=== PATIENT | female | born 1965 | race American Indian/Alaskan Native ===

== ENCOUNTER 2020-06-03 04:05 | Emergency (ER) | payer BC ==
[2020-06-03 04:18] VITALS: BP 131/76
--- NOTE | 2020-06-03 05:01 | XRay Report ---
CHEST 2 VIEWS INDICATION: chest pain and cough. COMPARISON: 10/11/2018 FINDINGS: SUPPORT DEVICES: None. HEART: Within normal limits. LUNGS/PLEURA: No acute air space or interstitial disease. No pneumothorax. ADDITIONAL FINDINGS: None. IMPRESSION: 1. No acute findings. Signer Name: Luca Torrez MD Signed: 06/03/2020 4:57 AM Workstation Name: [id number]
--- NOTE | 2020-06-03 06:24 | Event Note ---
ED Screening Note Date of service: 06/03/20 Time: 06:23 ED Screening Note: Patient complains of intermittent substernal chest pain x3 days Also complains of cough sore throat Denies past medical history This initial assessment/diagnostic orders/clinical plan/treatment(s) is/are subject to change based on patients health status, clinical progression and re- assessment by fellow clinical providers in the ED. Further treatment and workup at subsequent clinical providers discretion. Patient/guardian urged not to elope from the ED as their condition may be serious if not clinically assessed and managed. Initial orders include: Labs Chest x-ray EKG
[2020-06-03] MEDS ORDERED: LIDOCAINE VISCOUS 2% 15 ML ORAL LIQD PO ONE (07:16)
[2020-06-03] MEDS ORDERED: BENZONATATE 100 MG CAP PO ONE (07:16)
[2020-06-03 07:32] LABS: Hematocrit 43.1 % (30.3-42.9); Hemoglobin 14.6 gm/dl (10.1-14.3); Mean Corpuscular HGB Conc 34 % (30-34); Mean Corpuscular Volume 92 fl (79-97); Platelet Count 260 K/mm3 (140-440); Red Cell Distribution Width 13.4 % (13.2-15.2)
[2020-06-03 07:49] LABS: INR 1.16 (0.87-1.13); Partial Thromboplastin Time 29.2 Sec. (24.2-36.6)
[2020-06-03 07:54] LABS: Alanine Aminotransferase 10 units/L (7-56); Albumin 3.7 g/dL (3.9-5); BUN/Creatinine Ratio 23; Blood Urea Nitrogen 21 mg/dL (7-17); Calcium 9.6 mg/dL (8.4-10.2); Hemolysis Index 20
--- NOTE | 2020-06-03 08:11 | Emergency Department Report ---
- General Chief Complaint: Chest Pain Stated Complaint: SORE THROAT/CHEST PAIN Time Seen by Provider: 06/03/20 06:22 Source: patient Mode of arrival: Ambulatory Limitations: No Limitations - History of Present Illness Initial Comments: This is a 55-year-old female nontoxic, well nourished in appearance, no acute signs of distress presents to the ED with c/o of productive cough, sore throat, rhinorrhea, nasal congestion x1 week. Patient also stated has chest pains during cough but resolved at rest. Patient describes productive cough as yellow mucus production. Patient denies any sick contacts. Patient denies any recent travels, long car, recent hospital stays. Patient denies any calf pain or calf tenderness. Patient denies any chest pain, short of breath, fever, chills, nausea, vomiting, hemoptysis, numbness, tingling, headache or stiff neck. Stated had 2 negative covid testing. Allergies to tramadol. MD Complaint: cough, sore throat, rhinorrhea, nasal congestion, other (chest pain) -: days(s) Severity: mild Severity scale (0 -10): 3 Quality: aching Consistency: intermittent Improves With: nothing Worsens With: nothing Associated Symptoms: rhinorrhea, nasal congestion, sore throat, cough, chest pain. denies: fever, chills, myalgias, diaphoresis, headache, stiff neck, shortness of breath, abdominal pain, nausea, vomiting, diarrhea, dysuria, rash, confusion, right sweats, weight loss, epistaxis, hoarseness, ear pain - Related Data Previous Rx's Medication Instructions Recorded Last Taken Type Azithromycin [Zithromax Z-JINNY] 250 mg PO DAILY #6 tablet 06/03/20 Unknown Rx Benzonatate [Tessalon Perles] 100 mg PO Q8HR PRN #12 capsule 06/03/20 Unknown Rx Allergies Allergy/AdvReac Type Severity Reaction Status Date / Time tramadol Allergy Itching Verified 06/03/20 04:23 ED Review of Systems ROS: Stated complaint: SORE THROAT/CHEST PAIN Other details as noted in HPI Constitutional: denies: chills, fever Eyes: denies: eye pain, eye discharge, vision change ENT: throat pain, congestion. denies: ear pain Respiratory: cough. denies: shortness of breath, wheezing Cardiovascular: chest pain. denies: palpitations Endocrine: no symptoms reported Gastrointestinal: denies: abdominal pain, nausea, diarrhea Genitourinary: denies: urgency, dysuria, discharge Musculoskeletal: denies: back pain, joint swelling, arthralgia Skin: denies: rash, lesions Neurological: denies: headache, weakness, paresthesias Psychiatric: denies: anxiety, depression Hematological/Lymphatic: denies: easy bleeding, easy bruising ED Past Medical Hx - Past Medical History Previous Medical History?: No - Surgical History Past Surgical History?: Yes Hx Cholecystectomy: Yes Additional Surgical History: - Social History Smoking Status: Never Smoker Substance Use Type: None - Medications Home Medications: Home Medications Medication Instructions Recorded Confirmed Last Taken Type Azithromycin [Zithromax Z-JINNY] 250 mg PO DAILY #6 tablet 06/03/20 Unknown Rx Benzonatate [Tessalon Perles] 100 mg PO Q8HR PRN #12 capsule 06/03/20 Unknown Rx ED Physical Exam - General Limitations: No Limitations General appearance: alert, in no apparent distress - Head Head exam: Present: atraumatic, normocephalic - Eye Eye exam: Present: normal appearance - Expanded ENT Exam Expanded Ear exam: Present: normal external inspection Mouth exam: Present: normal external inspection, tongue normal. Absent: drooling, trismus, muffled voice Teeth exam: Present: normal inspection Throat exam: Positive: tonsillar erythema, other (Uvula midline. No tonsillar abscess or swelling.). Negative: tonsillomegaly, tonsillar exudate, R peritonsillar mass, L peritonsillar mass - Neck Neck exam: Present: normal inspection, full ROM. Absent: tenderness, meningismus, lymphadenopathy - Respiratory Respiratory exam: Present: normal lung sounds bilaterally, chest wall tenderness. Absent: respiratory distress, wheezes, rales, rhonchi, stridor, accessory muscle use, decreased breath sounds, prolonged expiratory - Cardiovascular Cardiovascular Exam: Present: regular rate, normal rhythm, normal heart sounds. Absent: bradycardia, tachycardia, irregular rhythm, systolic murmur, diastolic murmur, rubs, gallop - Extremities Exam Extremities exam: Present: normal inspection, full ROM, normal capillary refill. Absent: tenderness - Back Exam Back exam: Present: normal inspection, full ROM. Absent: tenderness, CVA tenderness (R), CVA tenderness (L), muscle spasm, paraspinal tenderness, vertebral tenderness, rash noted - Neurological Exam Neurological exam: Present: alert, oriented X3, normal gait - Psychiatric Psychiatric exam: Present: normal affect, normal mood - Skin Skin exam: Present: warm, dry, intact, normal color. Absent: rash ED Course Vital Signs 06/03/20 04:14 Temperature 97.5 F L Pulse Rate 75 Respiratory 18 Rate Blood Pressure 131/76 O2 Sat by Pulse 100 Oximetry - Reevaluation(s) Reevaluation #1: 06/03/20 08:08 Patient is speaking in full sentences with no signs of distress noted. ED Medical Decision Making - Lab Data Result diagrams: 06/03/20 06:34 06/03/20 06:34 Lab Results 06/03/20 06/03/20 06/03/20 Range/Units 06:34 06:34 07:08 WBC 7.3 (4.5-11.0) K/mm3 RBC 4.70 (3.65-5.03) M/mm3 Hgb 14.6 H (10.1-14.3) gm/dl Hct 43.1 H (30.3-42.9) % MCV 92 (79-97) fl MCH 31 (28-32) pg MCHC 34 (30-34) % RDW 13.4 (13.2-15.2) % Plt Count 260 (140-440) K/mm3 Eos % (Auto) Dietician PT 14.6 (12.2-14.9) Sec. INR 1.16 H (0.87-1.13) APTT 29.2 (24.2-36.6) Sec. Sodium 136 L (137-145) mmol/L Potassium 4.0 (3.6-5.0) mmol/L Chloride 102.8 (98-107) mmol/L Carbon Dioxide 26 (22-30) mmol/L Anion Gap 11 mmol/L BUN 21 H (7-17) mg/dL Creatinine 0.9 (0.6-1.2) mg/dL Estimated GFR > 60 ml/min BUN/Creatinine Ratio 23 % Glucose 102 H (65-100) mg/dL Calcium 9.6 (8.4-10.2) mg/dL Total Bilirubin 0.40 (0.1-1.2) mg/dL AST 14 (5-40) units/L ALT 10 (7-56) units/L Alkaline Phosphatase 53 (35-129) units/L Troponin T < 0.010 (0.00-0.029) ng/mL Total Protein 7.6 (6.3-8.2) g/dL Albumin 3.7 L (3.9-5) g/dL Albumin/Globulin Ratio 0.9 % - EKG Data 06/03/20 08:11 Normal sinus rhythm at [address] or T wave abnormalities. Reviewed and signed by MD - Radiology Data Referring Physician: ENE KNOTT Patient Name: NATE MARRUFO Date of : 1965 Sex: Female Report Date: 2020-06-03 Report Status: [place] [address] XRay Report Signed Patient: NATE MARRUFO MR#: [id number] : 1965 Acct:[id number] Age/Sex: 55 / F ADM Date: 06/03/20 Loc: ED Attending Dr: Ordering Physician: ENE KNOTT MD Date of Service: 06/03/20 Procedure(s): XR chest routine 2V Accession Number(s): [id number] cc: ENE KNOTT MD Fluoro Time In Minutes: CHEST 2 VIEWS INDICATION: chest pain and cough. COMPARISON: 10/11/2018 FINDINGS: SUPPORT DEVICES: None. HEART: Within normal limits. LUNGS/PLEURA: No acute air space or interstitial disease. No pneumothorax. ADDITIONAL FINDINGS: None. IMPRESSION: 1. No acute findings. Signer Name: Luca Torrez MD Signed: 06/03/2020 4:57 AM Workstation Name: [id number] Transcribed By: ANASTASIA Dictated By: Luca Torrez MD Electronically Authenticated By: Luca Torrez MD Signed Date/Time: 06/03/20456 DD/ 5 TD/TT: - Medical Decision Making This is a 55-year-old female that presents with viral bronchitis, pharyngitis and costochondritis. Patient is stable and was examined by me. POLI and HEART score 0 pints. PERC score for DVT/SVT/PE 0 points. Labs within normal limits. Negative troponin . Chest x-ray has been obtained and dictated by radiologist with normal exam. Patient is notified of x-ray results with no questions noted. Patient has recent negative 2 COVID-19 swabs but patient was instructed and educated on signs and symptoms and to self quarantine and seek medical attention as soon as possible if symptoms does occur. Will treat with Zpak. Patient was instructed to increase hydration, rest and take Tylenol for fever episodes. Patient received tesslone perrls in the ED. Vitals stable. Patient is nonfebrile and normal heart rate. Patient was instructed to Follow-up with a primary care/customer experience manager doctor in 2 days or if symptoms worsen and continue return to emergency room as soon as possible. At time of discharge, the patient does not seem toxic or ill in appearance. No acute signs of distress noted. Patient agrees to discharge treatment plan of care. No further questions noted by the patient. Critical care attestation.: If time is entered above; I have spent that time in minutes in the direct care of this critically ill patient, excluding procedure time. ED Disposition Clinical Impression: Viral bronchitis, Costochondritis Pharyngitis Qualifiers: Pharyngitis/tonsillitis etiology: unspecified etiology Qualified Code(s): J02.9 - Acute pharyngitis, unspecified Disposition: DC- TO HOME OR SELFCARE Is pt being admited?: No Does the pt Need Aspirin: No Condition: Stable Instructions: Chronic Bronchitis (ED), Costochondritis, [id number], Viral Respiratory Infection, [id number], Sore Throat, [id number] Additional Instructions: Follow-up with a primary care/customer experience manager doctor in 2 days or if symptoms worsen and continue return to emergency room as soon as possible. Prescriptions: Benzonatate [Tessalon Perles] 100 mg PO Q8HR PRN #12 capsule PRN Reason: Cough Azithromycin [Zithromax Z-JINNY] 250 mg PO DAILY #6 tablet Referrals: PRIMARY CAREMD [Primary Care Provider] - 3-5 Days NATASHA ALICEA MD [Staff Physician] - 06/05/20 BALTAZAR SHIPMAN MD [Staff Physician] - 06/05/20 Forms: Work/School Release Form(ED)
[2020-06-03 11:28] LABS: Total Cells Counted 100
[2020-06-03 11:29] LABS: Basophils % (Manual) 0 % (0.0-1.8); Platelet Estimate Consistent w Auto; RBC Morphology Normal
== END 2020-06-03 08:20 | disposition home or self-care (01) ==
LOC: ED 04:05
DX: M94.0 Chondrocostal junction syndrome [Tietze] (principal); J20.8 Acute bronchitis due to other specified organisms; J02.9 Acute pharyngitis, unspecified; Z79.899 Other long term (current) drug therapy; Z88.8 Allergy status to other drugs, medicaments and biological substances; Z90.49 Acquired absence of other specified parts of digestive tract; Z98.890 Other specified postprocedural states
CPT/HCPCS: 36415; 71046; 80053; 84484; 85007; 85025; 85610; 85730; 93005

== ENCOUNTER 2020-12-04 10:26 | Outpatient (CLI) | payer BC ==
[2020-12-04] MEDS ORDERED: COVID-19 VACC, MRNA(PFIZER)/PF 30 MCG/0.3 ML IM ONE (10:38)
== END 2020-12-04 10:27 | disposition home or self-care (01) ==
LOC: COVVAC 10:26
PROVIDERS: ATTEND Internal Medicine
DX: Z23 Encounter for immunization (principal)
CPT/HCPCS: 0002A; 91300

== ENCOUNTER 2021-01-22 12:57 | Outpatient (CLI) | payer BC ==
--- NOTE | 2021-01-22 13:58 | Cat Scan Report ---
CT HEAD WITHOUT CONTRAST INDICATION / CLINICAL INFORMATION: ACUTE HEADACHE. TECHNIQUE: Axial imaging performed from the skull apex through the skull base without the use of cont rast. Sagittal and coronal reformatted images. All CT scans at this location are performed using CT dose reduction for ALARA by means of automated exposure control. COMPARISON: None available. FINDINGS: CEREBRAL PARENCHYMA: No significant abnormality. No acute territorial infarct. HEMORRHAGE: None. EXTRA-AXIAL SPACES: Normal in size and morphology for the patient's age. VENTRICULAR SYSTEM: Normal in size and morphology for the patient's age. MIDLINE SHIFT OR HERNIATION: None. CEREBELLUM / BRAINSTEM: No significant abnormality. CALVARIUM: No significant abnormality. ORBITS: Normal as visualized. PARANASAL SINUSES / MASTOID AIR CELLS: Normal as visualized. SOFT TISSUES of HEAD: No significant abnormality. ADDITIONAL FINDINGS: None. IMPRESSION: No acute intracranial abnormality. Signer Name: Sawyer Grullon Jr, MD Signed: 01/22/2021 1:54 PM Workstation Name: [id number]
== END 2021-01-22 12:58 | disposition home or self-care (01) ==
LOC: CT 12:57
PROVIDERS: ATTEND Nurse Practitioner Family
DX: R51.9 Headache, unspecified (principal)
CPT/HCPCS: 70450

== ENCOUNTER 2021-05-14 13:34 | Outpatient (CLI) | payer BC ==
[2021-05-14 14:21] LABS: Hematocrit 41.7 % (30.3-42.9); Hemoglobin 13.8 gm/dl (10.1-14.3); Mean Corpuscular HGB Conc 33 % (30-34); Mean Corpuscular Volume 92 fl (79-97); Platelet Count 244 K/mm3 (140-440); Red Blood Count 4.54 M/mm3 (3.65-5.03); Red Cell Distribution Width 13.5 % (13.2-15.2)
[2021-05-14 16:20] LABS: Platelet Estimate Consistent w Auto; RBC Morphology Normal; Total Cells Counted 100
== END 2021-05-14 13:35 | disposition home or self-care (01) ==
LOC: LAB 13:34
PROVIDERS: ATTEND Pediatrics
DX: D82.8 Immunodeficiency associated with other specified major defects (principal); D84.9 Immunodeficiency, unspecified; E55.9 Vitamin D deficiency, unspecified; D64.9 Anemia, unspecified; E53.8 Deficiency of other specified B group vitamins; E60 Dietary zinc deficiency; E61.2 Magnesium deficiency; J30.1 Allergic rhinitis due to pollen; J30.89 Other allergic rhinitis; J32.9 Chronic sinusitis, unspecified; R53.83 Other fatigue
CPT/HCPCS: 36415; 82306; 82607; 82784; 82785; 83735; 84630; 85007; 85025

== ENCOUNTER 2021-05-22 10:23 | Outpatient (CLI) | payer BC ==
[2021-05-22 11:05] LABS: Hematocrit 44.7 % (30.3-42.9); Hemoglobin 14.3 gm/dl (10.1-14.3); Mean Corpuscular HGB Conc 32 % (30-34); Mean Corpuscular Volume 93 fl (79-97); Platelet Count 303 K/mm3 (140-440); Red Blood Count 4.79 M/mm3 (3.65-5.03); Red Cell Distribution Width 13.4 % (13.2-15.2)
[2021-05-22 13:51] LABS: Total Cells Counted 100
[2021-05-22 13:52] LABS: Hypersegmented Neutrophils 1+; Platelet Estimate Consistent w Auto
== END 2021-05-22 10:24 | disposition home or self-care (01) ==
LOC: LAB 10:23
PROVIDERS: ATTEND Pediatrics
DX: D84.9 Immunodeficiency, unspecified (principal)
CPT/HCPCS: 36415; 85007; 85025

== ENCOUNTER 2021-12-25 11:29 | Outpatient (CLI) | payer BC ==
--- NOTE | 2021-12-25 14:08 | XRay Report ---
Bilateral wrist radiographs, 2 views of each wrist provided. HISTORY: Pain in bilateral wrists. COMPARISON: None FINDINGS: Right wrist: No acute fracture or malalignment. Mild thumb CMC and STT osteoarthritis. Carpal alignme nt is preserved. Soft tissues are unremarkable. Left wrist: No acute fracture or malalignment. No significant osteoarthritis. Carpal alignment is pre served. No focal soft tissue abnormality. IMPRESSION: No acute findings of either wrist. Signer Name: Jem Aldridge MD Signed: 12/25/2021 2:04 PM Workstation Name: [id number]
== END 2021-12-25 11:30 | disposition home or self-care (01) ==
LOC: XRAY 11:29
PROVIDERS: ATTEND Orthopaedic Surgery
DX: M19.032 Primary osteoarthritis, left wrist (principal); M19.031 Primary osteoarthritis, right wrist

== ENCOUNTER 2022-01-29 11:06 | Outpatient (CLI) | payer BC ==
[2022-01-29 12:07] LABS: Hematocrit 42.3 % (30.3-42.9); Hemoglobin 14.3 gm/dl (10.1-14.3); Mean Corpuscular HGB Conc 34 % (30-34); Mean Corpuscular Volume 91 fl (79-97); Platelet Count 258 K/mm3 (140-440); Red Blood Count 4.67 M/mm3 (3.65-5.03); Red Cell Distribution Width 13.7 % (13.2-15.2)
[2022-01-29 12:28] LABS: Erythrocyte Sedimentation Rate 8 mm/Hr (0-20)
== END 2022-01-29 11:07 | disposition home or self-care (01) ==
LOC: LAB 11:06
PROVIDERS: ATTEND Orthopaedic Surgery
DX: M13.89 Other specified arthritis, multiple sites (principal)
CPT/HCPCS: 36415; 84550; 85027; 85652; 86038; 86431